=== PATIENT | female | born 1975 | race Hispanic/Latino ===

== ENCOUNTER → 2017-05-25 | Outpatient (CLI) | payer OTHER | END | disposition home or self-care (01) | LOC: SHCH 07:50 | PROVIDERS: ATTEND Internal Medicine Cardiovascular Disease | DX: I10 Essential (primary) hypertension (principal) | CPT/HCPCS: 93975 ==

== ENCOUNTER → 2018-04-03 | Outpatient (CLI) | payer OTHER | END | disposition home or self-care (01) | LOC: SHCH 10:00 | PROVIDERS: ATTEND Internal Medicine Cardiovascular Disease | DX: I10 Essential (primary) hypertension (principal) | CPT/HCPCS: 93306 ==

== ENCOUNTER 2019-01-31 08:47 | Observation (INO) | payer OTHER ==
[~2019-01-31] VITALS: Ht 154.9 cm; Wt 75.7 kg
[2019-01-31] MEDS ORDERED: ASPIRIN 325 MG TABLET ONE (09:53)
[2019-01-31] MEDS ORDERED: NITROGLYCERIN 0.4 MG SL TAB SL ONE (09:54)
[2019-01-31 09:56] LABS: BASOPHILS % (AUTO) 1.1 % (0.0-5.0); EOSINOPHILS % (AUTO) 2.6 % (0.0-8.0); HEMATOCRIT 40.9 % (36-48); LYMPHOCYTES % (AUTO) 37.3 % (21.0-51.0); MEAN CORPUSCULAR HEMOGLOBIN 30.4 pg (27.0-33.0); MEAN CORPUSCULAR HGB CONC 34.8 g/dL (32.0-36.0); MEAN CORPUSCULAR VOLUME 87.4 fL (79-99); MONOCYTES % (AUTO) 7.2 % (3.0-13.0); NEUTROPHILS % (AUTO) 51.8 % (40.0-77.0); PLATELET COUNT (AUTO) 265 K/uL (130-400); RED BLOOD CELL COUNT(AUTO) 4.68 MIL/uL (4.00-5.50); RED CELL DISTRIBUTION WIDTH 13.3 % (11.0-15.5)
[2019-01-31 10:03] LABS: POTASSIUM 3.9 mmol/L (3.5-5.1)
[2019-01-31 10:06] LABS: INR 0.95 (0.85-1.15); PARTIAL THROMBOPLASTIN TIME 25.4 SEC (26.3-35.5)
[2019-01-31 10:08] LABS: ALBUMIN 3.7 g/dL (3.5-5.0); BILIRUBIN,TOTAL 0.3 mg/dL (0.2-1.0); TOTAL PROTEIN, SERUM 6.8 g/dL (6.0-8.3)
[2019-01-31] MEDS ORDERED: MORPHINE SULFATE 2 MG/ML 1ML SYG IV PRN (12:15)
[2019-01-31] MEDS: NITROGLYCERIN 1GM/1 INCH PACKET TD SCH ×2 (12:15→20:15)
[2019-01-31] MEDS ORDERED: ONDANSETRON HCL 4 MG/2 ML VIAL IV PRN (12:15)
[2019-01-31] MEDS ORDERED: ACETAMINOPHEN 325 MG TAB PO PRN (12:15)
[2019-01-31] MEDS ORDERED: NITROGLYCERIN 1GM/1 INCH PACKET TD ONE (16:49)
[2019-01-31] MEDS ORDERED: ACETAMINOPHEN 325 MG TAB ONE (17:22)
[2019-01-31 18:10] VITALS: BP 155/79
[2019-01-31 19:30] VITALS: BP 129/67
[2019-01-31] MEDS ORDERED: AMLO10TA7 PO (19:53)
[2019-01-31] MEDS ORDERED: LOSA100T58 PO (19:53)
[2019-01-31] MEDS ORDERED: OMEP-50 PO (19:53)
[2019-01-31] MEDS ORDERED: SPIR25TA6 PO (19:53)
[2019-01-31] MEDS ORDERED: GABA-529 PO (19:53)
[2019-01-31] MEDS ORDERED: CHOL200074 PO (19:53)
[2019-01-31] MEDS: FAMOTIDINE 20MG TAB 20 MG TAB PO SCH (20:44)
[2019-01-31 21:02] LABS: CREATINE KINASE, TOTAL 58 U/L (21-232); MYOGLOBIN 50 ng/mL (10-92); TROPONIN I < 0.04 ng/mL (0.00-0.06)
[2019-01-31 23:15] VITALS: BP 123/57
[2019-02-01 01:09] LABS: AMPHET/METH SCREEN,URINE NEGATIVE (NEGATIVE); BARBITURATE SCREEN, URINE NEGATIVE (NEGATIVE); BENZODIAZEPINES SCREEN,URINE NEGATIVE (NEGATIVE); CANNABINOID SCREEN,URINE NEGATIVE (NEGATIVE); COCAINE SCREEN,URINE NEGATIVE (NEGATIVE); OPIATE SCREEN,URINE NEGATIVE (NEGATIVE); PHENCYCLIDINE SCREEN,URINE NEGATIVE (NEGATIVE)
[2019-02-01 03:30] VITALS: BP 102/73
[2019-02-01] MEDS: NITROGLYCERIN 1GM/1 INCH PACKET TD SCH ×2 (04:26→12:15)
[2019-02-01 06:19] LABS: BASOPHILS % (AUTO) 0.9 % (0.0-5.0); HEMATOCRIT 39.9 % (36-48); LYMPHOCYTES % (AUTO) 33.8 % (21.0-51.0); MEAN CORPUSCULAR HEMOGLOBIN 30.6 pg (27.0-33.0); MEAN CORPUSCULAR HGB CONC 34.6 g/dL (32.0-36.0); MEAN CORPUSCULAR VOLUME 88.5 fL (79-99); NEUTROPHILS % (AUTO) 55.3 % (40.0-77.0); NUCLEATED RED BLOOD CELLS 0.1 % (0.0-0.19); PLATELET COUNT (AUTO) 260 K/uL (130-400); RED BLOOD CELL COUNT(AUTO) 4.51 MIL/uL (4.00-5.50); RED CELL DISTRIBUTION WIDTH 13.4 % (11.0-15.5); WHITE BLOOD COUNT (AUTO) 7.5 K/uL (4.8-10.8)
[2019-02-01 06:39] LABS: CHOLESTEROL 170 mg/dL (<200); CREATINE KINASE, TOTAL 54 U/L (21-232); HDL CHOLESTEROL 30 mg/dL (35-85); LDL DIRECT 126 mg/dL (0-99); MYOGLOBIN 48 ng/mL (10-92); TRIGLYCERIDES 81 mg/dL (30-200); TROPONIN I < 0.04 ng/mL (0.00-0.06)
[2019-02-01 08:00] VITALS: BP 120/73
[2019-02-01] MEDS ORDERED: ASPIRIN 325 MG TABLET PO SCH (09:00)
[2019-02-01] MEDS: FAMOTIDINE 20MG TAB 20 MG TAB PO SCH (09:00)
[2019-02-01 11:50] VITALS: BP 145/76
[2019-02-01] MEDS ORDERED: REGADENOSON 0.4 MG/5 ML PF SYG IVP SCH (12:15)
[2019-02-01 16:00] VITALS: BP 151/98
--- NOTE | 2019-02-01 17:00 | NUR ---
DR NATALIO BUCIO CALLED. FROM HIS STAND POINT PATIENT CAN BE DISCHARGED SINCE STRESS TEST WAS NORMAL. ZEE BARON MADE AWARE.
--- NOTE | 2019-02-01 19:30 | NUR ---
DISCHARGE. PATIENT WITH DISCHARGE PAPERWORK IN HAND RIDE HAS COME TO PICK HER UP, PT REFUSING WHEELCHAIR AT THIS TIME. AMBULATED DOWN WITH HER SON AT SIDE. NO C/O PAIN OR DISCOMFORT AT THIS TIME. TELEMETRY REMOVED, IV CATHETER DISCONTINUED BY PREVIOUS SHIFT NURSE.
== END 2019-02-01 19:30 | disposition home or self-care (01) ==
LOC: EDH 08:47 → EDHIP 12:07 → 4AH 17:47
PROVIDERS: ADMIT Internal Medicine; ATTEND Internal Medicine
DX: I20.0 Unstable angina (principal); I11.9 Hypertensive heart disease without heart failure; R55 Syncope and collapse; R94.31 Abnormal electrocardiogram [ECG] [EKG]; E66.9 Obesity, unspecified; E11.9 Type 2 diabetes mellitus without complications; Z98.51 Tubal ligation status; Z90.711 Acquired absence of uterus with remaining cervical stump; Z79.899 Other long term (current) drug therapy; Z68.31 Body mass index [BMI] 31.0-31.9, adult
CPT/HCPCS: 36415 ×2; 71045; 78452; 80053; 80061; 80305; 82550 ×3; 83874 ×2; 83880; 84484 ×4; 85025 ×2; 85610; 85730; 93005 ×5; 93017; 99284; A9500 ×2; G0378 ×28; J2785; 96374

== ENCOUNTER → 2019-02-20 | Outpatient (CLI) | payer OTHER ==
[~2019-02-20] MED LIST: AMLO10TA7 PO; CHOL200074 PO; GABA-529 PO; LOSA100T58 PO; OMEP-50 PO; SPIR25TA6 PO
== END | disposition home or self-care (01) ==
LOC: CANPRECLI → RAH 08:57
PROVIDERS: ATTEND Internal Medicine Cardiovascular Disease
DX: R00.2 Palpitations (principal); I10 Essential (primary) hypertension; E66.9 Obesity, unspecified; Z98.51 Tubal ligation status; Z90.710 Acquired absence of both cervix and uterus
CPT/HCPCS: 93306